=== PATIENT | female | born 1995 | race Caucasian/White ===

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

== ENCOUNTER 2019-02-07 06:35 | Emergency (ER) | payer OTHER ==
--- NOTE | 2019-02-07 07:00 | ED ---
Psychiatric Complaint - HPI Summary HPI Summary: 23-year-old female presents with overdose on ibuprofen today. She states that she was feeling suicidal so she took 20+ 800 mg ibuprofen at 4:30. Police found her wandering the streets. She states this is her third suicide attempt. She is not on medication. She has not seen a therapist. She states that she has no where to stay and had a fight with her boyfriend. She does not currently have a job. She denies any bowel pain chest pain shortness of breath nausea vomiting. - History Of Current Complaint Chief Complaint: EDOverdose Time Seen by Provider: 02/07/19 06:52 Hx Last Menstrual Period: 09/26/16 - Allergies/Home Medications Allergies/Adverse Reactions: Allergies Allergy/AdvReac Type Severity Reaction Status Date / Time amoxicillin Allergy Swelling Verified 02/07/19 06:42 Of Face,Lips,& Throat Penicillins Allergy Swelling Verified 02/07/19 06:42 Of Face,Lips,& Throat Home Medications: Home Medications NK [No Home Medications Reported] 02/07/19 [History Confirmed 02/07/19] PMH/Surg Hx/FS Hx/Imm Hx Endocrine/Hematology History: Denies: Hx Diabetes, Hx Thyroid Disease Cardiovascular History: Denies: Hx Congestive Heart Failure, Hx Deep Vein Thrombosis, Hx Hypertension , Hx Myocardial Infarction, Hx Pacemaker/ICD Respiratory History: Denies: Hx Asthma, Hx Chronic Obstructive Pulmonary Disease (COPD), Hx Pneumonia, Hx Pulmonary Embolism GI History: Denies: Hx Gall Bladder Disease, Hx Gastrointestinal Bleed, Hx Ulcer, Hx Urosepsis History: Denies: Hx Kidney Stones, Hx Renal Disease Neurological History: Denies: Hx Dementia, Hx Migraine, Hx Seizures, Hx Transient Ischemic Attacks (TIA) Psychiatric History: Denies: Hx Anxiety, Hx Depression, Hx Schizophrenia, Hx Bipolar Disorder - Surgical History Surgery Procedure, Year, and Place: 2 C-SECTIONS Infectious Disease History: No Infectious Disease History: Denies: Traveled Outside the [place] in Last 30 Days - Family History Known Family History: Positive: Unknown - Social History Alcohol Use: None Substance Use Type: Reports: None Smoking Status (MU): Current Every Day Smoker Type: Cigarettes Amount Used/How Often: 1/2 PPD Length of Time of Smoking/Using Tobacco: 6 YRS Have You Smoked in the Last Year: Yes Review of Systems Negative: Fever Negative: Chest Pain Negative: Shortness Of Breath Negative: Abdominal Pain, Vomiting, Nausea Positive: Depressed All Other Systems Reviewed And Are Negative: Yes Physical Exam Triage Information Reviewed: Yes Vital Signs On Initial Exam: Initial Vitals Temp Pulse Resp BP Pulse Ox 99.4 F 104 16 128/93 98 02/07/19 06:37 02/07/19 06:37 02/07/19 06:37 02/07/19 06:37 02/07/19 06:37 Vital Signs Reviewed: Yes Appearance: Positive: Well-Appearing Skin: Positive: Warm, Dry Head/Face: Positive: Normal Head/Face Inspection Eyes: Positive: Normal, Conjunctiva Clear ENT: Positive: Pharynx normal Respiratory/Lung Sounds: Positive: Clear to Auscultation, Breath Sounds Present Cardiovascular: Positive: Normal, RRR Abdomen Description: Positive: Nontender, Soft Bowel Sounds: Positive: Present Musculoskeletal: Positive: Normal Neurological: Positive: Normal Psychiatric: Positive: Depressed Diagnostics - Vital Signs Vital Signs Temp Pulse Resp BP Pulse Ox 02/07/19 06:37 99.4 F 104 16 128/93 98 - Laboratory Result Diagrams: 02/07/19 07:22 02/07/19 07:22 Lab Statement: Any lab studies that have been ordered have been reviewed, and results considered in the medical decision making process. - EKG No standard instances Cardiac Rate: NL EKG Rhythm: Sinus Rhythm Summary of EKG Findings: sinus rhythm Re-Evaluation - Re-Evaluation First Eval Re-Evaluation Time: 12:52 Comment: patient no symptoms, is now clear. patient does admit to using cocaine over past couple days Course/Dx - Course Course Of Treatment: 23-year-old female presents with overdose on ibuprofen today. She states that she was feeling suicidal so she took 20+ 800 mg ibuprofen at 4:30. Police found her wandering the streets. She states this is her third suicide attempt. She is not on medication. She has not seen a therapist. She states that she has no where to stay and had a fight with her boyfriend. She does not currently have a job. She denies any bowel pain chest pain shortness of breath nausea vomiting. On exam has normal physical exam. patient appears depressed. wbc 17. urine positive for cannabis and cocaine. renal function normal. ekg sinus rhythm. poision control recommends repeat ekg in couple hours and observe for 6 hours. patient was observed for 6 hours. patient was seen by psych and per dr cortes this is due to cocaine induced mood disorder. patient will go home with mom. 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
[2019-02-07 07:34] LABS: ABS Eosinophils 0.1 10^3/ul (0-0.6); ABS Monocytes 1.1 10^3/ul (0-0.8); ABS Neutrophils 13.8 10^3/ul (1.5-7.7); Eosinophil % 0.3 %; Hematocrit 36 % (35-47); Hemoglobin 12.6 g/dL (12.0-16.0); Lymphocyte % 11.6 %; Mean Corpuscular HGB Conc 35 g/dL (31-36); Mean Corpuscular Hemoglobin 31 pg (27-31); Mean Corpuscular Volume 88 fL (80-97); Mean Platelet Volume 7.4 fL (7.4-10.4); Platelet Count 207 10^3/uL (150-450); Red Blood Count 4.13 10^6 /uL (3.70-4.87); Red Cell Distribution Width 13 % (10-15)
[2019-02-07 07:34] LABS: Urine Benzodiazepine Screen None Detected (None Detect); Urine Opiates Screen None Detected (None Detect)
[2019-02-07 07:45] LABS: ALT 7 U/L (7-52); AST 12 U/L (13-39); Albumin 4.3 g/dL (3.2-5.2); Albumin/Globulin Ratio 1.9 (1-3); Alkaline Phosphatase 46 U/L (34-104); Anion Gap 9 mmol/L (2-11); Blood Urea Nitrogen 10 mg/dL (6-24); CO2 Carbon Dioxide 21 mmol/L (22-32); Calcium 9.3 mg/dL (8.6-10.3); Chloride 108 mmol/L (101-111); EGFR African American 94.4 (>60); Globulin 2.3 g/dL (2-4); Glucose 92 mg/dL (70-100); Potassium 3.8 mmol/L (3.5-5.0); Sodium 138 mmol/L (135-145); Total Protein 6.6 g/dL (6.4-8.9)
[2019-02-07 08:12] LABS: Acetaminophen < 15 mcg/mL; Alcohol < 10 mg/dL (<10); Salicylate < 2.50 mg/dL (<30)
[2019-02-07 08:22] LABS: Urine Appearance Clear; Urine Bacteria Absent (Absent); Urine Bilirubin Negative (Negative); Urine Blood 1+ (Negative); Urine Color Yellow; Urine Glucose Negative (Negative); Urine Ketones Negative (Negative); Urine Nitrite Negative (Negative); Urine Protein 1+(30 mg/dL) (Negative); Urine Red Blood Cell Trace(0-2/hpf) (Absent); Urine Specific Gravity 1.005 (1.010-1.030); Urine Squamous Epithelial Cell Present (Absent); Urine Urobilinogen Negative (Negative); Urine White Blood Cell 1+(6-10/hpf) (Absent)
[2019-02-07 13:44] VITALS: BP 110/72
== END 2019-02-07 13:44 | disposition home or self-care (01) ==
LOC: ED 06:35
DX: T39.312A Poisoning by propionic acid derivatives, intentional self-harm, initial encounter (principal); F15.14 Other stimulant abuse with stimulant-induced mood disorder; Y92.9 Unspecified place or not applicable; F17.210 Nicotine dependence, cigarettes, uncomplicated; Z88.1 Allergy status to other antibiotic agents; Z88.0 Allergy status to penicillin
CPT/HCPCS: 36415; 80053; 80307; 80320; 80329; 81003; 81015; 84443; 85025; 87086; 93005; 99285; G0480